=== PATIENT | male | born 1955 ===

== ENCOUNTER 2017-07-21 21:35 | Emergency (ER) | payer OTHER ==
[2017-07-21 21:42] VITALS: BP 126/84; PULSE 63; RESP 16; TEMP 97.9; O2SAT 98
[2017-07-21] MEDS ORDERED: Tramadol 25 mg PO STA (22:56)
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
== END 2017-07-22 00:13 | disposition home or self-care (01) ==
LOC: C.ER 21:35
DX: T14.8XXA Other injury of unspecified body region, initial encounter (principal); V43.52XA Car driver injured in collision with other type car in traffic accident, initial encounter

== ENCOUNTER 2018-12-14 14:40 | Outpatient (CLI) | payer OTHER | END 2018-12-14 14:41 | disposition home or self-care (01) | LOC: C.MRIC 14:41 | DX: M25.561 Pain in right knee (principal) ==

== ENCOUNTER 2018-12-23 12:43 | Outpatient (CLI) | payer OTHER | END 2018-12-23 12:44 | disposition home or self-care (01) | LOC: C.LAB 12:43 | DX: R17 Unspecified jaundice (principal) ==

== ENCOUNTER 2019-01-25 13:27 | Outpatient (CLI) | payer OTHER | END 2019-01-25 13:28 | disposition home or self-care (01) | LOC: C.LAB 13:27 | DX: R97.20 Elevated prostate specific antigen [PSA] (principal) ==